=== PATIENT | male | born 1970 | race Caucasian/White ===

== ENCOUNTER 2022-08-19 06:18 | Day surgery (SDC) | payer BC ==
--- NOTE | 2022-08-17 16:07 | RAD REPORT ---
EXAM DESCRIPTION: RAD - Chest Pa And Lat (2 Views) - 08/17/2022 3:55 pm CLINICAL HISTORY: pre op pending hernia repair COMPARISON: None TECHNIQUE: Frontal and lateral views of the chest were obtained. FINDINGS: The lungs are clear of an acute infiltrate. Left costophrenic angle blunting is present. T here is partially obscured left heart border. Patient has extensive surgical fusion changes of the th oracolumbar junction. Left base findings are believed to be chronic. A small 7 mm rounded nodule is p resent in the lower right lung field. Trachea is midline. Heart size is normal and central vasculature is within normal limits. No pleur al effusion or pneumothorax seen. No acute bony finding noted. No aortic abnormality. IMPRESSION: Left base pleural and parenchymal changes are believed to be chronic and probably a rela maya to the spinal surgery. No failure or volume overload. A small nodular density lower right lung field can be monitored on subsequent imaging. Repeat imaging in 4-6 months could be performed.
--- NOTE | 2022-08-18 14:55 | EKG ---
Test Date: 2022-08-17 Test Time: 15:41:07 Street Roller Engineer: ROLDAN MEASUREMENT RESULTS: Intervals: Rate: 77 AK: 168 QRSD: 96 QT: 374 QTc: 423 [place]: P: 46 AK: 168 QRS: 44 T: 36 INTERPRETIVE STATEMENTS: Normal sinus rhythm Normal ECG No previous ECG available for comparison Electronically Signed On 08-18-22 14:54:01 PEN RIDER by Raymundo Garcia
[2022-08-19] MEDS ORDERED: NA CHLORIDE 0.9% 1,000 ML ONE (06:40)
[2022-08-19] MEDS: CEFAZOLIN SODIUM 1 GM/VIAL ONE ×2 (07:06→07:35)
[2022-08-19] MEDS ORDERED: propofoL 200 MG/20 ML VIAL IV ONE (07:14)
[2022-08-19] MEDS ORDERED: FENTANYL CITR 100 MCG/2 ML ONE ×2 (07:14→08:29)
[2022-08-19] MEDS ORDERED: LIDOCAINE 2% MPF 5 ML VIAL ONE (07:14)
[2022-08-19] MEDS ORDERED: MIDAZOLAM HCL 2 MG/2 ML INJ ONE (07:14)
[2022-08-19] MEDS ORDERED: ROCURONIUM 50 MG/5 ML VIAL IV ONE (07:16)
[2022-08-19] MEDS ORDERED: NS 0.9% VIAL 10 ML ONE (07:28)
[2022-08-19] MEDS ORDERED: KETOROLAC 30 MG/ML INJ ONE (07:41)
[2022-08-19] MEDS ORDERED: ONDANSETRON 4 MG/2 ML VIAL ONE (07:42)
[2022-08-19] MEDS ORDERED: GLYCOPYRROLATE 0.2 MG/ML SYR ONE (07:50)
[2022-08-19] MEDS ORDERED: NEOSTIGMINE 1 MG/ML -5 ML ONE (08:15)
[2022-08-19] MEDS ORDERED: Mastisol Adhesive Liq ONE (08:21)
[2022-08-19] MEDS ORDERED: HYDROCODONE/APAP 7.5/325 MG TAB PO PRN (08:26)
--- NOTE | 2022-08-19 08:33 | P.OP ---
Date of Service: 08/19/22 Preop diagnosis: Umbilical hernia Postop diagnosis: Same Procedure performed: Laparoscopic assisted repair of umbilical hernia Surgeon: Edison Jeffries MD Stripping Shovel Operator: Jessica CARDENAS Estimated blood loss: Minimal Specimen: Hernia sac and contents Findings: As above Anesthesia: General Complications: None Drains: None Fluids and blood products: Nonapplicable Disposition: Recovery room Operative note: Patient brought to the OR and placed in supine position. General anesthesia begun. Patient prepped and draped in usual sterile fashion. 15 blade used to make a 1 cm left upper quadrant incision.Subcutaneous tissue divided and bleeding controlled with cautery. Fascia identified and divided. #1 Vicryl stay suture placed. Peritoneal cavity entered with sharp and blunt dissection. 12 mm trocar placed into the peritoneal cavity under direct vision. Pneumoperitoneum established. Laparoscopy revealed preperitoneal fat and a small umbilical hernia. 5 mm trocar placed in the left lower quadrant. 3 cm incision made over the hernia at the umbilicus. Hernia sac and contents identified and excised. A 2 cm defect remained. Ventralex mesh medium in size placed and secured with pro tack. #1 PDS used to close the fascial defect in a [id number] fashion. All trochars removed under direct vision. Stay sutur es tied to each other to reapproximate the fascial defect. Subcutaneous was irrigated bleeding controlled cautery. 3-0 chromic used to reapproximate subcutaneous tissue and close skin. Sterile dressing applied and patient awakened. Patient taken to recovery room in good general condition. CC:
[2022-08-19] MEDS ORDERED: HYDROCODONE/APAP 7.5/325 MG TAB ONE (09:26)
[2022-08-19 09:51] VITALS: BP 106/64; TEMP 97.1; O2SAT 94
== END 2022-08-19 10:00 | disposition home or self-care (01) ==
LOC: OR 06:18
PROVIDERS: ATTEND Surgery
PROC: 0WUF4JZ Supplement Abdominal Wall with Synthetic Substitute, Percutaneous Endoscopic Approach (ICD-10-PCS; principal; 2022-08-19 07:30)
DX: K42.9 Umbilical hernia without obstruction or gangrene (principal)
CPT/HCPCS: 93005; 82947 ×2; 88302; 71046; 49593; J2704; J2001; J3010 ×2; A4216; J2710; J7030; J2405; J0690; J2250